=== PATIENT | female | born 1960 | race Two or more races ===

== ENCOUNTER 2020-04-14 19:32 | Emergency (ER) | payer MEDICARE, MEDICAID ==
[~2020-04-14] VITALS: Ht 157.5 cm; Wt 63.5 kg
[2020-04-14] MEDS ORDERED: SODIUM CHLORIDE 0.9% 1,000 ML IV ONE (19:58)
[2020-04-14] MEDS ORDERED: ONDANSETRON HCL 4 MG/2 ML VIAL IV ONE (20:00)
[2020-04-14] MEDS ORDERED: MORPHINE SULFATE 4 MG/ML SYR/VIAL IV ONE (20:00)
[2020-04-14 21:11] LABS: Basophils # (auto) 0 10 ^3/uL (0-0.2); Basophils % (auto) 0.2 % (0.0-2.0); Eosinophils # (auto) 0.1 10 ^3/uL (0-0.8); Eosinophils % (auto) 0.3 % (0.0-7.0); Hematocrit 35.8 % (36.0-46.0); Hemoglobin 11.6 g/dL (12.2-16.2); Lymphocytes % (auto) 4.4 % (10.0-50.0); Mean Corpuscular Hemoglobin 31.5 pg (28.0-32.0); Mean Corpuscular Hgb Conc. 32.4 g/dL (32.0-36.0); Mean Corpuscular Volume 97.2 fL (80.0-100.0); Monocytes # (auto) 1.1 10 ^3/uL (0-1.3); Monocytes % (auto) 4.8 % (0.0-12.0); Neutrophils # (auto) 20.4 10 ^3/uL (1.6-8.6); Neutrophils % (auto) 90.3 % (37.0-80.0); Platelet Count (auto) 439 10^3/uL (140-450); Red Blood Cells 3.68 10^6/uL (4.0-5.20); Red Cell Distribution Width 14.1 % (11.8-14.3); White Blood Cell 22.6 10^3/uL (4.4-10.8)
[2020-04-14 21:24] LABS: Calcium 9.5 mg/dL (8.5-10.1); Potassium 3.3 mmol/L (3.5-5.1)
[2020-04-14 21:29] LABS: BUN/Creatinine Ratio 14.3; Bilirubin, Total 0.7 mg/dL (0.2-1.0); Total Protein 8.1 g/dL (6.4-8.2)
[2020-04-15] MEDS ORDERED: HYDROmorphone HCL 2 MG/ML VL IV ONE
[2020-04-15] MEDS ORDERED: cloNIDine HCL 0.1 MG TAB PO ONE
[2020-04-15] MEDS ORDERED: metroNIDAZOLE 500MG/100ML 100 ML IV ONE (00:15)
[2020-04-15] MEDS ORDERED: cefTRIAXone 1GM/50ML D5W 50 ML IV ONE (00:15)
[2020-04-15] MEDS ORDERED: IOHEXOL 350 MG/ML 100ML IJ ONE (00:19)
[2020-04-15] MEDS ORDERED: hydrALAZINE HCL 20 MG/ML VL IV ONE ×2 (01:15→04:00)
[2020-04-15 07:00] VITALS: BP 152/70
== END 2020-04-15 06:20 | disposition home or self-care (01) ==
LOC: EDBD 19:32 → ER 19:32
DX: G89.18 Other acute postprocedural pain (principal); R10.13 Epigastric pain; R10.33 Periumbilical pain; K59.00 Constipation, unspecified; D72.829 Elevated white blood cell count, unspecified; E11.9 Type 2 diabetes mellitus without complications; I10 Essential (primary) hypertension; Z90.49 Acquired absence of other specified parts of digestive tract; Z86.73 Personal history of transient ischemic attack (TIA), and cerebral infarction without residual deficits
CPT/HCPCS: 36415; 74176; 80053; 82150; 83605; 83690; 85025; 87040; 96365; 96368; 96375; 96376; 99285; J0360; J0696; J1170; J2270; J2405; J3490; Q9967